=== PATIENT | male | born 1985 | race Caucasian/White ===

== ENCOUNTER → 2017-10-10 | Outpatient (CLI) | payer MEDICAID ==
--- NOTE | 2017-10-10 14:34 | RADIOLOGY REPORT (SQ) ---
EXAM DESCRIPTION: KUB/ABDOMEN (SINGLE VIEW) COMPLETED DATE/TIME: 10/10/2017 2:12 pm REASON FOR STUDY: LOWER ABDOMINAL PAIN, UNSPECIFIED R10.30 LOWER ABDOMINAL PAIN, UNSPECIFIED COMPARISON: None. NUMBER OF VIEWS: One view. TECHNIQUE: Supine radiographic image of the abdomen acquired. LIMITATIONS: None. FINDINGS: BOWEL GAS PATTERN: Normal bowel gas pattern. Moderate stool throughout. No dilated loops . CALCIFICATIONS: No suspicious calcifications. SOFT TISSUES: No gross mass or suggestion of organomegaly. HARDWARE: None in the abdomen. BONES: No acute fracture. No worrisome bone lesions. OTHER: No other significant finding. IMPRESSION: NO RADIOGRAPHIC EVIDENCE FOR ACUTE ABDOMINAL DISEASE. TECHNICAL DOCUMENTATION: JOB ID: [id number] [employer]- All Rights Reserved Reading location - IP/workstation name: [email or web address]
== END ==
LOC: RAD 13:56
PROVIDERS: ATTEND Physician Assistant
DX: R10.30 Lower abdominal pain, unspecified (principal)
CPT/HCPCS: 74018

== ENCOUNTER 2018-04-16 16:50 | Emergency (ER) | payer MEDICARE, MEDICAID ==
--- NOTE | 2018-04-16 18:25 | ER Document Report ---
ED Medical Screen (RME) - General Chief Complaint: Near Syncope Stated Complaint: SEIZURE Time Seen by Provider: 04/16/18 18:10 Primary Care Provider: CONNOR PLASCENCIA PA-C [Primary Care Provider] - Follow up as needed Mode of Arrival: Wheelchair Information source: Patient Notes: This is a 33-year-old man with a of cerebral palsy and seizure disorder who presents to the emergency room with increased episodes of seizures over the last 3 days. Patient's sister who is accompanying the patient, states that the patient has had 8 seizures in the last 3 days. She states that he has had a variety of different types of seizures and these episodes involving going limp for 10-20 seconds. She does have a VNS. Review of systems: Patient is alert and oriented in triage, he is answering questions and in no distress. Patient denies any recent illnesses. He denies increased stress. He denies lack of sleep. He denies fever. He denies any pain. Meds: Sertraline 150 daily Losartan 50 mg daily Fycompa 8mg at night Lamictal XL 400 mg in the morning, 200 mg in the afternoon. Quetiapine 800 mg PM Allergies: Keflex, penicillin Neurologist: Dr. [facility] physician: Connor plascencia TRAVEL OUTSIDE OF THE [place] IN LAST 30 DAYS: No - Related Data Allergies/Adverse Reactions: cephalexin monohydrate [From Keflex] Allergy (Verified 08/02/15 20:17) Penicillins Allergy (Verified 08/02/15 20:17) Past Medical History - Social History Frequency of alcohol use: None Drug Abuse: None - Past Medical History Cardiac Medical History: Denies: Hx Coronary Artery Disease, Hx Heart Attack, Hx Hypertension Pulmonary Medical History: Denies: Hx Asthma, Hx Bronchitis, Hx COPD, Hx Pneumonia Neurological Medical History: Reports: Hx Seizures - last 05/04/14. 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
[2018-04-16 19:05] LABS: ABSOLUTE LYMPHOCYTES (AUTO) 1.1 10^3/uL (0.5-4.7); ABSOLUTE MONOCYTES (AUTO) 0.7 10^3/uL (0.1-1.4); ABSOLUTE NEUT (AUTO) 3.9 10^3/uL (1.7-8.2); BASOPHILS % (AUTO) 0.3 % (0-2); EOSINOPHILS % (AUTO) 0.2 % (0-6); HEMATOCRIT 42.6 % (37.9-51.0); HEMOGLOBIN 14.7 g/dL (13.5-17.0); MEAN CORPUSCULAR HEMOGLOBIN 28.8 pg (27.0-33.4); MEAN CORPUSCULAR HGB CONC 34.5 g/dL (32.0-36.0); MEAN CORPUSCULAR VOLUME 84 fl (80-97); MONOCYTES % (AUTO) 11.6 % (3-13); PLATELET COUNT 198 10^3/uL (150-450); RED CELL DISTRIBUTION WIDTH 13.5 % (11.5-14.0); SEGMENTED NEUTROPHILS % (AUTO) 68.9 % (42-78); TOTAL CELLS COUNTED % (AUTO) 100 %; WHITE BLOOD COUNT 5.6 10^3/uL (4.0-10.5)
[2018-04-16 19:26] LABS: ALANINE AMINOTRANSFERASE 52 U/L (21-72); ALBUMIN 4.6 g/dL (3.5-5.0); ALKALINE PHOSPHATASE 99 U/L (38-126); ANION GAP 9 (5-19); ASPARTATE AMINO TRANSFERASE 38 U/L (17-59); BILIRUBIN,DIRECT 0.2 mg/dL (0.0-0.4); BILIRUBIN,TOTAL 0.7 mg/dL (0.2-1.3); BLOOD UREA NITROGEN 13 mg/dL (7-20); CALCIUM 9.1 mg/dL (8.4-10.2); CARBON DIOXIDE 28 mmol/L (22-30); CHLORIDE 102 mmol/L (98-107); GLUCOSE 122 mg/dL (75-110); SODIUM 138.6 mmol/L (137-145); TOTAL PROTEIN 7.2 g/dL (6.3-8.2)
--- NOTE | 2018-04-16 20:23 | ER Document Report ---
ED General - General Chief Complaint: Near Syncope Stated Complaint: SEIZURE Time Seen by Provider: 04/16/18 18:10 Primary Care Provider: CONNOR GUERRERO PA-C [Primary Care Provider] - Follow up as needed TANYA SEQUEIRA MD [NO LOCAL MD] - Follow up tomorrow Mode of Arrival: Wheelchair Cannot obtain history due to: Mentally challenged Notes: Patient is a 33-year-old male with a known history of cerebral palsy, epilepsy, presents with formula concerns of increased seizure frequency. Apparently the patient has had 8 of his hypotonic type seizures in the last 3 days. Has been compliant with all medications. No recent dosing changes. No sleeping schedule changes. He does have a vagal nerve stimulator in place and battery is apparently greater than 50%. He has not seen his neurologist regarding today's concerns. Was referred to the emergency department by the primary care physician. No history of similar seizure increased frequency in the past per the sister at the bedside. No localizing infectious symptoms. No fever. Otherwise acting at his baseline. History is otherwise limited secondary to the patient's underlying cognitive impairment. TRAVEL OUTSIDE OF THE [place] IN LAST 30 DAYS: No - Related Data Allergies/Adverse Reactions: cephalexin monohydrate [From Kei-marker] Allergy (Verified 08/02/15 20:17) Penicillins Allergy (Verified 08/02/15 20:17) Past Medical History - General Information source: Patient, Relative - Social History Smoking Status: Never Smoker Frequency of alcohol use: None Drug Abuse: None Lives with: Family Family History: Reviewed & Not Pertinent Patient has suicidal ideation: No Patient has homicidal ideation: No - Past Medical History Cardiac Medical History: Denies: Hx Coronary Artery Disease, Hx Heart Attack, Hx Hypertension Pulmonary Medical History: Denies: Hx Asthma, Hx Bronchitis, Hx COPD, Hx Pneumonia Neurological Medical History: Reports: Hx Seizures - last 05/04/14. 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 HENT: Negative for sore throat. Eyes: Negative for visual changes. Cardiovascular: Negative for chest pain. Respiratory: Negative for shortness of breath. Gastrointestinal: Negative for abdominal pain, vomiting or diarrhea. Genitourinary: Negative for dysuria. Musculoskeletal: Negative for back pain. Skin: Negative for rash. Neurological: Negative for headaches, weakness or numbness. 10 point ROS negative except as marked above and in HPI. Physical Exam - Vital signs Vitals: Temp Pulse Resp BP Pulse Ox 98.4 F 90 16 127/75 H 97 04/16/18 16:59 04/16/18 16:59 04/16/18 16:59 04/16/18 16:59 04/16/18 16:59 Interpretation: Normal Notes: PHYSICAL EXAMINATION: GENERAL: Well-appearing, well-nourished and in no acute distress. HEAD: Atraumatic, normocephalic. EYES: Pupils equal round and reactive to light, extraocular movements intact, sclera anicteric, conjunctiva are normal. ENT: nares patent, oropharynx clear without exudates. Moist mucous membranes. NECK: Normal range of motion, supple without lymphadenopathy LUNGS: Breath sounds clear to auscultation bilaterally and equal. No wheezes rales or rhonchi. HEART: Regular rate and rhythm without murmurs ABDOMEN: Soft, nontender, normoactive bowel sounds. No guarding, no rebound. No masses appreciated. EXTREMITIES: Normal range of motion, no pitting or edema. No cyanosis. NEUROLOGICAL: No focal neurological deficits. Moves all extremities spontaneously and on command. PSYCH: Alert, pleasant on contact SKIN: Warm, Dry, normal turgor, no rashes or lesions noted. Course - Re-evaluation Re-evalutation: 04/16/18 20:20 Presentation of well-appearing patient after having a seizure. Patient is primarily coming to the emergency room due to increased frequency of seizures. Patient has a known history of seizures, is on Fycompa and Lamictal. He also has a vagal nerve stimulator. No obvious trigger for today's episode. Family is primarily concerned due to the increased frequency of the seizures. He has apparently had 8 in the past 3 days. The patient has returned to baseline without intervention. No focal neurologic deficits. No infectious symptoms, vital sign abnormalities, or evidence of trauma. I did attempt to contact the patient's neurologist Dr. Sequeira but he has not available for paging and I have no mechanism by which to contact him. I informed the family that they will need to contact the office directly and schedule close outpatient follow-up particular given my inability to establish contact with their neurologist melisa. I also therefore do not feel comfortable making any kind of medication adjustments given that the patient has a complex history of seizures and is ready on multiple therapies at this point. At this time will discharge with return precautions and follow-up recommendations. Verbal discharge instructions given a the bedside and opportunity for questions given. Medication warnings reviewed. Family is in agreement with this plan and has verbalized unders tanding of return precautions and the need for primary care follow-up in the next 24-72 hours. - Vital Signs Vital signs: Temp Pulse Resp BP Pulse Ox 98.9 F 90 14 106/69 96 04/16/18 21:02 04/16/18 16:59 04/16/18 21:02 04/16/18 21:02 04/16/18 21:02 - Laboratory Result Diagrams: 04/16/18 18:54 04/16/18 18:54 Laboratory results interpreted by me: 04/16/18 18:54 Glucose 122 H Magnesium 2.4 H Discharge - Discharge Clinical Impression: Epilepsy Qualifiers: Epilepsy type: unspecified Intractability: intractable Status epilepticus: without status epilepticus Qualified Code(s): G40.919 - Epilepsy, unspecified, intractable, without status epilepticus Condition: Stable Disposition: HOME, SELF-CARE Additional Instructions: Today you had a seizure. Please return to the ED immediately if you have multip le seizures close together, develop a severe headache, weakness, numbness, difficulty speaking, have a seizure in which you do not return to normal within 1 hour of the seizure, or have any other symptoms that are concerning to you. I was unable to contact Dr. Sequeira as he is no longer available for paging. You do however need to follow-up very closely with him regarding possible medication changes given the increase of your seizure frequency. Referrals: CONNOR GUERRERO PA-C [Primary Care Provider] - Follow up as needed TANYA SEQUEIRA MD [NO LOCAL MD] - Follow up tomorrow
[2018-04-16 20:58] LABS: APPEARANCE,URINE CLEAR; BILIRUBIN,URINE NEGATIVE (NEGATIVE); COLOR,URINE YELLOW; GLUCOSE, URINE NEGATIVE (NEGATIVE); KETONES,URINE NEGATIVE (NEGATIVE); LEUKOCYTE ESTERASE,URINE NEGATIVE (NEGATIVE); NITRITE,URINE NEGATIVE (NEGATIVE); PROTEIN,URINE NEGATIVE (NEGATIVE); URINE SPECIFIC GRAVITY 1.012; UROBILINOGEN,URINE NEGATIVE mg/dL (<2.0)
[2018-04-16 21:41] VITALS: BP 106/69
== END 2018-04-16 21:30 | disposition home or self-care (01) ==
LOC: ER 16:50
DX: G40.919 Epilepsy, unspecified, intractable, without status epilepticus (principal); G80.9 Cerebral palsy, unspecified; Z88.3 Allergy status to other anti-infective agents; Z88.0 Allergy status to penicillin; Z87.820 Personal history of traumatic brain injury; Z98.2 Presence of cerebrospinal fluid drainage device
CPT/HCPCS: 36415; 51701; 80053; 81001; 83735; 85025; 99283